=== PATIENT | female | born 1995 | race Caucasian/White ===

== ENCOUNTER 2016-05-30 16:53 | Emergency (ER) | payer MEDICAID ==
[~2016-05-30] VITALS: Ht 160 cm; Wt 100.0 kg
[~2016-05-30 16:53] MED LIST: CETI10CA PO; GUAI120S26 PO; IBUP-1542 PO; OSLT75C PO; ZOF8 PO
[2016-05-30 17:11] VITALS: Ht 160 cm; Wt 100.0 kg
[2016-05-30] MEDS ORDERED: AMO500 PO (17:31)
[2016-05-30] MEDS ORDERED: IBUP800T25 PO (17:32)
--- NOTE | 2016-05-30 17:43 | ERD ---
ER Documentation Chief Complaint Date/Time DATE: 05/30/16 TIME: 17:[address] X 4 DAYS HPI 20-year-old female with no significant past medical history presents to the ED complaining of sore throat that started 4 days ago. Reports tactile fevers at home. States that her throat feels slightly swollen. States that she still able to swallow without difficulty. States that she bought a OTC spray for her throat which has provided no relief. Denies any chest pain, shortness of breath , abdominal pain, wheezing, nausea, vomiting, diarrhea, cough, neck pain, neck stiffness. Denies any sick contacts. ROS All systems reviewed and are negative except as per history of present illness. Medications Home Meds Active Scripts Ibuprofen* (Motrin*) 800 Mg Tab, 800 MG PO Q6, #30 TAB Prov:DANIELLA WIN PA-C 05/30/16 Amoxicillin* (Amoxicillin*) 500 Mg Cap, 500 MG PO TID for 10 Days, CAP Prov:DANIELLA WIN PA-C 05/30/16 Ibuprofen* (Motrin*) 600 Mg Tab, 600 MG PO Q6H Y for PAIN AND OR ELEVATED TEMP, #30 TAB Prov:GREER FRASER NP 06/03/15 Oseltamivir Phosphate* (Tamiflu*) 75 Mg Capsule, 75 MG PO BID for 5 Days, CAP Prov:GREER FRASER NP 06/03/15 Cetirizine Hcl* (Zyrtec*) 10 Mg Capsule, 10 MG PO DAILY, #30 TAB.CHEW Prov:GREER FRASER NP 06/03/15 Ckdpbniqwpv-Z-Rzmvbqkwiw Hb* (Guaifenesin* DM Syrup) 120 Ml Syrup, 10 ML PO Q4H Y for COUGH, #120 ML Prov:GREER FRASER NP 06/03/15 Ibuprofen* (Motrin*) 600 Mg Tab, 600 MG PO Q6, #16 TAB Prov:CHANELLE CAMPBELL MD 05/31/15 Ondansetron Hcl* (Zofran* ODT) 8 mg -ODT Tab.disper, 8 MG PO Q6 Y for NAUSEA AND /OR VOMITING, #8 TAB Prov:CHANELLE CAMPBELL MD 05/31/15 Allergies Allergies: Coded Allergies: No Known Allergy (Unverified , 01/29/14) PMhx/Soc History of Surgery: Yes (left ankle surgery) Anesthesia Reaction: No Hx Neurological Disorder: No Hx Respiratory Disorders: No Hx Cardiac Disorders: No Hx Psychiatric Problems: No Hx Miscellaneous Medical Probl: No Hx Alcohol Use: No Hx Substance Use: No Hx Tobacco Use: No Physical Exam Vitals Vital Signs Date Time Temp Pulse Resp B/P Pulse Ox O2 Delivery O2 Flow Rate FiO2 05/30/16 18:13 98.6 77 18 128/68 98 Room Air 05/30/16 17:11 99.7 91 20 140/87 100 Physical Exam Const: Axn-oth-pejnunrop, well-nourished. In no acute distress. Head: Atraumatic, normocephalic Eyes: Normal Conjunctiva without injection. No purulent discharge. PERRL. EOMI ENT: Normal external ear. Ear canal without erythema. Tympanic membrane pearly penn without effusion or bulging. Nasal canal clear with normal turbinates. Moist oropharynx with bilateral tonsillar exudates. Slightly erythematous and edematous bilateral pharynx. Non-kissing tonsils noted. Uvula midline. No drooling. No trismus. Neck: Full range of motion. No meningismus. No cervical lymphadenopathy. Resp: Clear to auscultation bilaterally. No wheezing, rhonchi, rales, or crackles. No accessory muscle use. No retractions. Cardio: Regular rate and rhythm. No murmurs, rubs or gallops. Abd: Soft, non tender, non distended. Normal bowel sounds. No palpable masses. No rebound tenderness. No guarding. Skin: No petechiae or rashes Back: No midline tenderness. No CVA tenderness. Ext: No cyanosis, or edema. Neur: Awake and alert. Psych: Normal Mood and Affect Results 24 hrs Current Medications Medications (Trade) Dose Ordered Sig/Scarlett Route PRN Reason Start Time Stop Time Status Last Admin Dose Admin Dexamethasone (Decadron) 10 mg ONCE ONCE IM 05/30/16 18:00 05/30/16 18:01 DC 05/30/16 17:47 Ibuprofen (Motrin) 800 mg ONCE ONCE PO 05/30/16 18:00 05/30/16 18:01 DC 05/30/16 17:47 Amoxicillin (Amoxicillin) 500 mg ONCE ONCE PO 05/30/16 18:00 05/30/16 18:01 DC 05/30/16 17:54 Procedures/MDM This is a 20-year-old female with no significant past medical history presents to the ED complaining of sore throat that started 4 days ago. Patient is afebrile and nontoxic-appearing. Patient has normal vital signs. Patient's physical exam is consistent with presumed strep pharyngitis. She was treated here in the ED with Decadron 10 mg IM, Ibuprofen, Amoxicillin with improvement of her symptoms. Based on [employer] Criteria, patient has reported fever at home , exudates noted on bilateral edematous tonsils, no cough. Patient is appropriate for outpatient antibiotics. Patient's physical exam include lungs which were clear to auscultation and a normal pulse oximetry. Bilateral ears pearly rushing. No tenderness to palpation of tragus or mastoid. Low suspicion for mastoiditis, otitis externa, otitis media. Patient is speaking in full sentences. There is a low suspicion for pneumonia, epiglottitis, croup, sinusitis, peritonsillar abscess, hands foot mouth disease, scarlet fever, Viraj's angina, retropharyngeal abscess, meningitis, sepsis, acute abdomen or other emergent conditions. Discharge medications: Ibuprofen, Amoxicillin Follow up with primary care physician in 1-2 days. Instructed patient to return to the ED sooner for any worsening symptoms. Patient's questions were answered. Patient understood and agreed with discharge plan. Patient discharged stable. Departure Diagnosis: Primary Impression: Sore throat Condition: Stable Patient Instructions: Self-Care for Sore Throats, Pharyngitis, Strep (Presumed) Referrals: NO PRIMARY,CARE PHYSICIAN (PCP) COMM[facility]ITY CLINICS YOU HAVE RECEIVED A MEDICAL SCREENING EXAM AND THE RESULTS INDICATE THAT YOU DO NOT HAVE A CONDITION THAT REQUIRES URGENT TREATMENT IN THE EMERGENCY DEPARTMENT. FURTHER EVALUATION AND TREATMENT OF YOUR CONDITION CAN WAIT UNTIL YOU ARE SEEN IN YOUR DOCTORS OFFICE WITHIN THE NEXT 1-2 DAYS. IT IS YOUR RESPONSIBILITY TO MAKE AN APPOINTMENT FOR FOLOW-UP CARE. IF YOU HAVE A PRIMARY DOCTOR --you should call your primary doctor and schedule an appointment IF YOU DO NOT HAVE A PRIMARY DOCTOR YOU CAN CALL OUR PHYSICIAN REFERRAL HOTLINE AT IF YOU CAN NOT AFFORD TO SEE A PHYSICIAN YOU CAN CHOSE FROM THE FOLLOWING [facility] CLINICS [facility] [address] [facility] [address] [facility] [facility] [address] [facility] [address] [facility] [address] [facility] [address] [facility]. [facility] YOU HAVE RECEIVED A MEDICAL SCREENING EXAM AND THE RESULTS INDICATE THAT YOU DO NOT HAVE A CONDITION THAT REQUIRES URGENT TREATMENT IN THE EMERGENCY DEPARTMENT. FURTHER EVALUATION AND TREATMENT OF YOUR CONDITION CAN WAIT UNTIL YOU ARE SEEN IN YOUR DOCTORS OFFICE WITHIN THE NEXT 1-2 DAYS. IT IS YOUR RESPONSIBILITY TO MAKE AN APPOINTMENT FOR FOLOW-UP CARE. IF YOU HAVE A PRIMARY DOCTOR --you should call your primary doctor and schedule and appointment IF YOU DO NOT HAVE A PRIMARY DOCTOR YOU CAN CALL OUR PHYSICIAN REFERRAL HOTLINE AT . IF YOU CAN NOT AFFORD TO SEE A PHYSICIAN YOU CAN CHOSE FROM THE FOLLOWING [facility] INSTITUTIONS: [facility] [address] [place] [address] [facility] [address] [place] [address] [facility] [address] [place] [address] [facility] URGENT CARE/SPECIALTIES Additional Instructions: FOLLOW UP WITH YOUR PRIMARY CARE PHYSICIAN TOMORROW.Return to this facility if you are not improving as expected. DANIELLA WIN PA-C May 30, 2016 17:43
[2016-05-30] MEDS ORDERED: AMOXICILLIN 500 MG CAP PO ONE (18:00)
[2016-05-30] MEDS ORDERED: IBUPROFEN 800 MG TAB PO ONE (18:00)
[2016-05-30] MEDS ORDERED: DEXAMETHASONE 10 MG/ML 1 ML INJ IM ONE (18:00)
[2016-05-30 18:13] VITALS: BP 128/68; PULSE 77; RESP 18; TEMP 98.6
== END 2016-05-30 18:14 | disposition home or self-care (01) ==
LOC: FTE 16:53
DX: J02.9 Acute pharyngitis, unspecified (principal)
CPT/HCPCS: 96372; J1100; Z7502; Z7610

== ENCOUNTER 2016-07-06 18:59 | Emergency (ER) | payer MEDICAID ==
[~2016-07-06] VITALS: Ht 157.5 cm; Wt 101.5 kg
[~2016-07-06 18:59] MED LIST changes: +AMO500 PO; +IBUP800T25 PO
[2016-07-06 19:19] VITALS: Ht 157.5 cm; Wt 101.5 kg
--- NOTE | 2016-07-06 19:24 | ERD ---
ER Documentation Chief Complaint Date/Time DATE: 07/06/16 Chief Complaint Right eye redness HPI The patient is a 20-year-old female who presents the Emergency Department with complaint of right eye redness and discharge for the past 2 days. The patient reports that her son was recently experiencing similar symptoms, and was diagnosed with acute bacterial conjunctivitis. Upon waking up two days ago, the patient noted matting and crusting of the lashes of her right eye. Since, she has developed erythema and purulent drainage. She notes that she has been washing her eye multiple times a day, but the discharge continues to return. She denies any foreign body sensation to the eye. Denies use of contacts or glasses. Denies any pain with eye movement. Denies proptosis. Denies any trauma to the eye. Denies any visual changes, diplopia, blurred vision or vision loss. Denies fevers, chills, nausea, vomiting. Denies rhinorrhea, nasal condition, sore throat, neck pain, neck stiffness, ear pain or new rashes. ROS All systems reviewed and are negative except as per history of present illness. Medications Home Meds Active Scripts Polymyxin/Trimethoprim* (Polytrim* Eye Drops) 10 Ml Drops, 1 DROP RIGHT EYE QID for 7 Days, EA Prov:ANTONIETTA KRAMER PA-C 07/06/16 Ibuprofen* (Motrin*) 800 Mg Tab, 800 MG PO Q6, #30 TAB Prov:DANIELLA WIN PA-C 05/30/16 Amoxicillin* (Amoxicillin*) 500 Mg Cap, 500 MG PO TID for 10 Days, CAP Prov:DANIELLA WIN PA-C 05/30/16 Ibuprofen* (Motrin*) 600 Mg Tab, 600 MG PO Q6H Y for PAIN AND OR ELEVATED TEMP, #30 TAB Prov:GREER FRASER NP 06/03/15 Oseltamivir Phosphate* (Tamiflu*) 75 Mg Capsule, 75 MG PO BID for 5 Days, CAP Prov:GREER FRASER NP 06/03/15 Cetirizine Hcl* (Zyrtec*) 10 Mg Capsule, 10 MG PO DAILY, #30 TAB.CHEW Prov:GREER FRASER NP 06/03/15 Gzmtwzwtdox-M-Adjskjveim Hb* (Guaifenesin* DM Syrup) 120 Ml Syrup, 10 ML PO Q4H Y for COUGH, #120 ML Prov:GREER FRASER NP 06/03/15 Ibuprofen* (Motrin*) 600 Mg Tab, 600 MG PO Q6, #16 TAB Prov:CHANELLE CAMPBELL MD 05/31/15 Ondansetron Hcl* (Zofran* ODT) 8 mg -ODT Tab.disper, 8 MG PO Q6 Y for NAUSEA AND /OR VOMITING, #8 TAB Prov:CHANELLE CAMPBELL MD 05/31/15 Allergies Allergies: Coded Allergies: No Known Allergy (Unverified , 01/29/14) PMhx/Soc History of Surgery: Yes (left ankle surgery) Anesthesia Reaction: No Hx Neurological Disorder: No Hx Respiratory Disorders: No Hx Cardiac Disorders: No Hx Psychiatric Problems: No Hx Miscellaneous Medical Probl: No Hx Alcohol Use: No Hx Substance Use: No Hx Tobacco Use: No Physical Exam Vitals Vital Signs Date Time Temp Pulse Resp B/P Pulse Ox O2 Delivery O2 Flow Rate FiO2 07/06/16 19:19 98.5 92 20 149/65 99 Physical Exam GENERAL: Well-developed, well-nourished, female, in no acute distress HEENT: Head is normocephalic, atraumatic. Pupils equal, round and reactive to light. Extraocular movements intact. No pain with eye movement. No proptosis. Right eye with conjunctival erythema and injection. Discharge noted in the eyelid margins near the medial canthus of the right eye. Left eye is clear with no erythema, injection or discharge. No periorbital swelling or erythema. Nares are patent bilaterally. Bilaterally tympanic membranes are clear with no evidence of erythema, effusion or dulling of the light reflex. Moist mucous membranes. No tonsillar exudates or erythema of the oropharynx. NECK: Supple. No masses, no tenderness, no lymphadenopathy. Trachea midline. No nuchal rigidity. No meningismus. RESPIRATORY: Lungs are clear to auscultation bilaterally. Equal breath sounds. Normal expiratory effort. CARDIOVASCULAR: Regular rate and rhythm. EXTREMITIES: No clubbing, cyanosis, or edema. Normal skin perfusion. Moving all extremities. NEUROLOGIC: The patient is alert, awake, and oriented. INTEGUMENT: Skin is intact. Warm and dry. No rashes, no petechiae present. PSYCHIATRIC: Cooperative. Procedures/MDM This is a 20-year-old male presenting to the Emergency Department with complaint of right eye redness and discharge for the past two days. The patient' s son was recently diagnosed with bacterial conjunctivitis after experiencing similar symptoms. On physical examination, the patient had conjunctival erythema and injection of the right eye, with discharge noted in the eyelid margins near the medial canthus. Otherwise, she had no pain with eye movement, no proptosis, no scleral icterus. No periorbital edema or erythema were noted. No foreign bodies seen on eyelid eversion. The differential diagnosis includes, but is not limited to, viral infection, viral conjunctivitis, bacterial conjunctivitis, allergic conjunctivitis, reactive arthritis, keratoconjunctivitis sicca, chemical irritant, uveitis, glaucoma, foreign body, corneal abrasion/ulceration, keratitis, scleritis, episcleritis, dacryocystitis , trauma, subconjunctival hemorrhage, hordeolum, chalazion, blepharitis. There is no current evidence of intra-ocular trauma. No clinical findings of periorbital/orbital cellulitis. After rest, the patient reports no new complaints. Upon my review and interpretation of the patient's presentation, I believe the patient's symptoms are most consistent with acute conjunctivitis, likely bacterial in origin, given unilateral presentation, with crusting, matting and discharge. At this time, the patient is in stable condition and therefore can be discharged home with a prescription for Polytrim drops, and given strict return precautions for signs of deteriorating or worsening condition. The patient is instructed to follow up with her primary medical provider within 2-3 days for reevaluation and further management or return to the ER sooner for any persistent, new or worsening symptoms. I shared my medical decision making and plan with the patient, and they verbally understand and agree with the plan for further observation and care as an outpatient. At the time of discharge all questions were answered. Departure Diagnosis: Primary Impression: Acute conjunctivitis Acute conjunctivitis type: bacterial Laterality: right Qualified Code: H10.31 - Acute bacterial conjunctivitis of right eye Condition: Stable Patient Instructions: Conjunctivitis, Bacterial, What Is Conjunctivitis? Additional Instructions: Call your primary care doctor TOMORROW for an appointment during the next 2-3 days.See the doctor sooner or return here if your condition worsens before your appointment time. ANTONIETTA KRAMER PA-C Jul 06, 2016 19:24
[2016-07-06] MEDS ORDERED: POLY10DR RIGHT EYE (19:25)
== END 2016-07-06 19:22 | disposition home or self-care (01) ==
LOC: FTE 18:59 → E/R 19:22
DX: H10.31 Unspecified acute conjunctivitis, right eye (principal)
CPT/HCPCS: 99283

== ENCOUNTER 2016-09-12 09:09 | Emergency (ER) | payer MEDICAID ==
[~2016-09-12] VITALS: Ht 165.1 cm; Wt 90.0 kg
[~2016-09-12 09:09] MED LIST changes: +POLY10DR RIGHT EYE
[2016-09-12 09:13] VITALS: Ht 165.1 cm; Wt 90.0 kg
[2016-09-12] MEDS ORDERED: POLY10DR19 RIGHT EYE (10:27)
--- NOTE | 2016-09-12 10:32 | ERD ---
ER Documentation Chief Complaint Date/Time DATE: 09/12/16 TIME: 10:30 Chief Complaint right eye lid swelling HPI Is a 21-year-old female presents to the emergency department today complaining of right eyelid swelling that started 3 days ago. Patient states it was " really bad this morning". Denies any fevers or chills. ROS All systems reviewed and are negative except as per history of present illness. Medications Home Meds Active Scripts Polymyxin B Sulfate-TMP* (Polymyxin B-TMP Eye Drops*) 10 Ml Drops, 1 DROP RIGHT EYE QID for 7 Days, EA Prov:CHRISTI DOOLEYC 09/12/16 Polymyxin/Trimethoprim* (Polytrim* Eye Drops) 10 Ml Drops, 1 DROP RIGHT EYE QID for 7 Days, EA Prov:ANTONIETTA KARMER PA-C 07/06/16 Ibuprofen* (Motrin*) 800 Mg Tab, 800 MG PO Q6, #30 TAB Prov:DANIELLA WIN PA-C 05/30/16 Amoxicillin* (Amoxicillin*) 500 Mg Cap, 500 MG PO TID for 10 Days, CAP Prov:DANIELLA WIN PA-C 05/30/16 Ibuprofen* (Motrin*) 600 Mg Tab, 600 MG PO Q6H Y for PAIN AND OR ELEVATED TEMP, #30 TAB Prov:GREER FRASER NP 06/03/15 Oseltamivir Phosphate* (Tamiflu*) 75 Mg Capsule, 75 MG PO BID for 5 Days, CAP Prov:GREER FRASER NP 06/03/15 Cetirizine Hcl* (Zyrtec*) 10 Mg Capsule, 10 MG PO DAILY, #30 TAB.CHEW Prov:GREER FRASER NP 06/03/15 Cdztakzhwrw-H-Anaikkbrmb Hb* (Guaifenesin* DM Syrup) 120 Ml Syrup, 10 ML PO Q4H Y for COUGH, #120 ML Prov:GREER FRASER NP 06/03/15 Ibuprofen* (Motrin*) 600 Mg Tab, 600 MG PO Q6, #16 TAB Prov:CHANELLE CAMPBELL MD 05/31/15 Ondansetron Hcl* (Zofran* ODT) 8 mg -ODT Tab.disper, 8 MG PO Q6 Y for NAUSEA AND /OR VOMITING, #8 TAB Prov:CHANELLE CAMPBELL MD 05/31/15 Allergies Allergies: Coded Allergies: No Known Allergy (Unverified , 01/29/14) PMhx/Soc History of Surgery: Yes (left ankle surgery) Anesthesia Reaction: No Hx Neurological Disorder: No Hx Respiratory Disorders: No Hx Cardiac Disorders: No Hx Psychiatric Problems: No Hx Miscellaneous Medical Probl: No Hx Alcohol Use: No Hx Substance Use: No Hx Tobacco Use: No Physical Exam Vitals Vital Signs Date Time Temp Pulse Resp B/P Pulse Ox O2 Delivery O2 Flow Rate FiO2 09/12/16 09:13 98.1 67 20 121/67 99 Physical Exam Const: No acute distress Head: Atraumatic Eyes: Normal Conjunctiva bilaterally. No erythema. No purulent drainage. PERRLA. EOM intact. No pain with eye movement ENT: Normal External Ears, Nose and Mouth. Neck: Full range of motion..~ No meningismus. Resp: Clear to auscultation bilaterally Cardio: Regular rate and rhythm, no murmurs Skin: No petechiae or rashes Neur: Awake and alert Psych: Normal Mood and Affect Procedures/MDM This is 21-year-old female who presents the emergency department today for right eyelid swelling for the past 3 days. Patient states it was "really bad this morning". Patient's physical exam is benign. There is no conjunctival erythema or eyelid swelling. There is no evidence of chalazion or hordeolum. Low suspicion for orbital cellulitis, preseptal cellulitis. Patient has no pain with eye movement. Patient symptoms at this time possibly related to blepharitis. She was given Polytrim and instructed to apply warm compresses. She is afebrile and otherwise well-appearing. At this time the patient is stable for discharge and outpatient management. Patient should follow up with their PCP in the next 1-2 days. They may return to the emergency department sooner for any persistent or worsening of symptoms. Patient understood and agreed with the plan. Departure Diagnosis: Primary Impression: Eye problem Condition: Fair Referrals: COMMUNITY CLINICS YOU HAVE RECEIVED A MEDICAL SCREENING EXAM AND THE RESULTS INDICATE THAT YOU DO NOT HAVE A CONDITION THAT REQUIRES URGENT TREATMENT IN THE EMERGENCY DEPARTMENT. FURTHER EVALUATION AND TREATMENT OF YOUR CONDITION CAN WAIT UNTIL YOU ARE SEEN IN YOUR DOCTORS OFFICE WITHIN THE NEXT 1-2 DAYS. IT IS YOUR RESPONSIBILITY TO MAKE AN APPOINTMENT FOR FOLOW-UP CARE. IF YOU HAVE A PRIMARY DOCTOR --you should call your primary doctor and schedule an appointment IF YOU DO NOT HAVE A PRIMARY DOCTOR YOU CAN CALL OUR PHYSICIAN REFERRAL HOTLINE AT IF YOU CAN NOT AFFORD TO SEE A PHYSICIAN YOU CAN CHOSE FROM THE FOLLOWING [facility] [address] [facility] [address] [place] [employer] [facility] [address] [facility] [address] [facility] [address] [facility]. [facility]. [address] Additional Instructions: Call your primary care doctor TOMORROW for an appointment during the next 1-2 days.See the doctor sooner or return here if your condition worsens before your appointment time. Use antibiotic drops as prescribed Apply warm compresses CHRISTI DOOLEY PA-C September 12, 2016 10:32
== END 2016-09-12 11:09 | disposition home or self-care (01) ==
LOC: FTE 09:09
DX: H57.8 Other specified disorders of eye and adnexa (principal)
CPT/HCPCS: 99283

== ENCOUNTER 2016-10-24 21:17 | Emergency (ER) | END 2016-10-24 23:04 | disposition home or self-care (01) | DX: H00.015 Hordeolum externum left lower eyelid (principal) ==

== ENCOUNTER 2016-10-29 19:52 | Emergency (ER) | payer MEDICAID ==
[~2016-10-29] VITALS: Ht 170.2 cm; Wt 103.0 kg
[~2016-10-29 19:52] MED LIST changes: +POLY10DR19 RIGHT EYE; +SULF15DR19 BOTH EYES
[2016-10-29 19:57] VITALS: Ht 170.2 cm; Wt 103.0 kg
[2016-10-29] MEDS ORDERED: IBUP800T25 PO (20:51)
[2016-10-29] MEDS ORDERED: PEN500 PO (20:51)
--- NOTE | 2016-10-30 00:06 | ERD ---
ER Documentation Chief Complaint Date/Time DATE: 10/30/16 TIME: 00:03 Chief Complaint l DENTAL PAIN SINCE SUNDAY HPI 21-year-old female patient with no significant past medical history presents the ED complaining of left mandibular molar dental pain that started 3 days ago. Reports that she has not seen a dentist. States that she has been taking naproxen with relief of her pain. Denies any fever, chills, neck swelling, dysphagia, odynophagia, nausea, vomiting. ROS All systems reviewed and are negative except as per history of present illness. Medications Home Meds Active Scripts Penicillin V Potassium* (Penicillin V K*) 500 Mg Tab, 500 MG PO QID for 7 Days, TAB Prov:DANIELLA WIN PA-C 10/29/16 Ibuprofen* (Motrin*) 800 Mg Tab, 800 MG PO Q6, #30 TAB Prov:DANIELLA WIN PA-C 10/29/16 Sulfacetamide Sodium* (Bleph-10*) 10%-15 Ml Opht Drops, 1 DROP BOTH EYES Q2H for 7 Days, #1 EA Prov:KHRIS ALARCON 10/24/16 Polymyxin B Sulfate-TMP* (Polymyxin B-TMP Eye Drops*) 10 Ml Drops, 1 DROP RIGHT EYE QID for 7 Days, EA Prov:CHRISTI DOOLEYC 09/12/16 Polymyxin/Trimethoprim* (Polytrim* Eye Drops) 10 Ml Drops, 1 DROP RIGHT EYE QID for 7 Days, EA Prov:ANTONIETTA KRAMERC 07/06/16 Ibuprofen* (Motrin*) 800 Mg Tab, 800 MG PO Q6, #30 TAB Prov:DANIELLA WIN PA-C 05/30/16 Amoxicillin* (Amoxicillin*) 500 Mg Cap, 500 MG PO TID for 10 Days, CAP Prov:DANIELLA WINC 05/30/16 Ibuprofen* (Motrin*) 600 Mg Tab, 600 MG PO Q6H Y for PAIN AND OR ELEVATED TEMP, #30 TAB Prov:GREER FRASER NP 06/03/15 Oseltamivir Phosphate* (Tamiflu*) 75 Mg Capsule, 75 MG PO BID for 5 Days, CAP Prov:GREER FRASER NP 06/03/15 Cetirizine Hcl* (Zyrtec*) 10 Mg Capsule, 10 MG PO DAILY, #30 TAB.CHEW Prov:GREER FRASER NP 06/03/15 Kzfzlxmdumc-A-Nyctynsjks Hb* (Guaifenesin* DM Syrup) 120 Ml Syrup, 10 ML PO Q4H Y for COUGH, #120 ML Prov:GREER FRASER NP 06/03/15 Ibuprofen* (Motrin*) 600 Mg Tab, 600 MG PO Q6, #16 TAB Prov:CHANELLE CAMPBELL MD 05/31/15 Ondansetron Hcl* (Zofran* ODT) 8 mg -ODT Tab.disper, 8 MG PO Q6 Y for NAUSEA AND /OR VOMITING, #8 TAB Prov:CHANELLE CAMPBELL MD 05/31/15 Allergies Allergies: Coded Allergies: No Known Allergy (Unverified , 01/29/14) PMhx/Soc History of Surgery: Yes (left ankle surgery) Anesthesia Reaction: No Hx Neurological Disorder: No Hx Respiratory Disorders: No Hx Cardiac Disorders: No Hx Psychiatric Problems: No Hx Miscellaneous Medical Probl: No Hx Alcohol Use: No Hx Substance Use: No Hx Tobacco Use: No Smoking Status: Never smoker Physical Exam Vitals Vital Signs Date Time Temp Pulse Resp B/P Pulse Ox O2 Delivery O2 Flow Rate FiO2 10/29/16 19:57 99.6 77 16 124/85 100 Physical Exam Const: Pan-rdt-zesrcfxej, well-nourished. In no acute distress. Head: Atraumatic, normocephalic Eyes: Normal Conjunctiva without injection. No purulent discharge. PERRL. EOMI ENT: Normal external ear. Ear canal without erythema. Tympanic membrane pearly penn without effusion or bulging. Nasal canal clear with normal turbinates. Moist oropharynx without tonsillar exudates. Non-erythematous pharynx. Uvula midline. No drooling. No trismus. No angioedema. Tenderness to palpation of the left third lower molar #17. No lymphatic streaking. No abscess noted. No fluctuance or induration. Neck: Full range of motion. No meningismus. No cervical lymphadenopathy. Resp: Clear to auscultation bilaterally. No wheezing, rhonchi, rales, or crackles. No accessory muscle use. No retractions. Cardio: Regular rate and rhythm. No murmurs, rubs or gallops. Abd: Soft, non tender, non distended. Normal bowel sounds. No palpable masses. No rebound tenderness. No guarding. Skin: No petechiae or rashes Back: No midline tenderness. No CVA tenderness. Ext: No cyanosis, or edema. Neur: Awake and alert. Psych: Normal Mood and Affect Procedures/MDM This is a 21-year-old female patient with no significant past history presents to the ED complaining of left lower molar pain #17. Patient is afebrile and nontoxic-appearing. Patient has normal vital signs. Patient is appropriate for outpatient antibiotics. Patient will be given a prescription for Penicillin VK and Ibuprofen. Patient is speaking in full sentences. She was strictly instructed to follow-up with dentist for further evaluation and treatment. Low suspicion for Viraj's angina, strep pharyngitis, mastoiditis, otitis externa, otitis media. There is a low suspicion for pneumonia, epiglottitis, croup, sinusitis, peritonsillar abscess, hands foot mouth disease , retropharyngeal abscess, meningitis, sepsis, acute abdomen or other emergent conditions. Discharge medications: Ibuprofen, Penicillin VK Follow up with primary care physician in 1-2 days. Instructed patient to return to the ED sooner for any worsening symptoms. Patient's questions were answered. Patient understood and agreed with discharge plan. Patient discharged stable. Departure Diagnosis: Primary Impression: Toothache Condition: Stable Patient Instructions: Dental Pain Referrals: [facility] YOU HAVE RECEIVED A MEDICAL SCREENING EXAM AND THE RESULTS INDICATE THAT YOU DO NOT HAVE A CONDITION THAT REQUIRES URGENT TREATMENT IN THE EMERGENCY DEPARTMENT. FURTHER EVALUATION AND TREATMENT OF YOUR CONDITION CAN WAIT UNTIL YOU ARE SEEN IN YOUR DOCTORS OFFICE WITHIN THE NEXT 1-2 DAYS. IT IS YOUR RESPONSIBILITY TO MAKE AN APPOINTMENT FOR FOLOW-UP CARE. IF YOU HAVE A PRIMARY DOCTOR --you should call your primary doctor and schedule an appointment IF YOU DO NOT HAVE A PRIMARY DOCTOR YOU CAN CALL OUR PHYSICIAN REFERRAL HOTLINE AT IF YOU CAN NOT AFFORD TO SEE A PHYSICIAN YOU CAN CHOSE FROM THE FOLLOWING [facility] [address] [facility]. [facility] [address] [facility] [facility] [address] [facility] [address] [facility] [address] [facility]. [facility] [address] [facility]. [facility] YOU HAVE RECEIVED A MEDICAL SCREENING EXAM AND THE RESULTS INDICATE THAT YOU DO NOT HAVE A CONDITION THAT REQUIRES URGENT TREATMENT IN THE EMERGENCY DEPARTMENT. FURTHER EVALUATION AND TREATMENT OF YOUR CONDITION CAN WAIT UNTIL YOU ARE SEEN IN YOUR DOCTORS OFFICE WITHIN THE NEXT 1-2 DAYS. IT IS YOUR RESPONSIBILITY TO MAKE AN APPOINTMENT FOR FOLOW-UP CARE. IF YOU HAVE A PRIMARY DOCTOR --you should call your primary doctor and schedule and appointment IF YOU DO NOT HAVE A PRIMARY DOCTOR YOU CAN CALL OUR PHYSICIAN REFERRAL HOTLINE AT . IF YOU CAN NOT AFFORD TO SEE A PHYSICIAN YOU CAN CHOSE FROM THE FOLLOWING [facility] INSTITUTIONS: [facility] [address] [place] [address] [facility] [address] [place] [address] [facility] [address] [place] [address] [facility] DENTIST ([facility] walk in clinic) Additional Instructions: FOLLOW UP WITH YOUR dentist TOMORROW. Return to this facility if you are not improving as expected. See the doctor sooner or return here if your condition worsens before your appointment time - fever, nausea, vomiting, worsening swelling and redness. DANIELLA WIN PA-C Oct 30, 2016 00:05 DANIELLA WIN PA-C Oct 30, 2016 00:05
== END 2016-10-29 21:16 | disposition home or self-care (01) ==
LOC: FTE 19:52
DX: K08.89 Other specified disorders of teeth and supporting structures (principal)
CPT/HCPCS: 99283

== ENCOUNTER 2018-07-24 19:41 | Emergency (ER) | payer MEDICAID ==
[~2018-07-24] VITALS: Ht 160 cm; Wt 102.1 kg
[~2018-07-24 19:41] MED LIST changes: -AMO500 PO; +AMOX500C2 PO; -IBUP800T25 PO; +IBUP800T48 PO; +OSEL75CA23 PO; -OSLT75C PO; +PENI500T PO
[2018-07-24 19:54] VITALS: Ht 160 cm; Wt 102.1 kg
[2018-07-24] MEDS ORDERED: KETOROLAC 60 MG INJ IM STA (22:44)
[2018-07-25] MEDS ORDERED: ACYC800T PO (01:12)
[2018-07-25] MEDS ORDERED: CEPH-443 PO (01:12)
[2018-07-25] MEDS ORDERED: LIDO40SO8 MM (01:12)
[2018-07-25] MEDS ORDERED: TRAM50TA2 PO (01:13)
[2018-07-25 01:28] VITALS: BP 121/92; PULSE 78; RESP 18
--- NOTE | 2018-07-25 01:31 | ERD ---
ER Documentation Chief Complaint Chief Complaint flank pain x 1 week, pain on urination as well HPI History of Present Illness: Patient coming in today with complaint of right flank pain is been present for 1 week. Patient reports noticing rash to right flank approximately 4-5 days ago, reports that started as itching and then became painful. Patient also reporting she has had painful urination with abdominal cramping. denies patient denies any systemic signs of infection, patient denies any other associated symptoms. At home pharmacological/nonpharmacological treatment for symptoms: Denies Denies social concerns; Denies recent foreign travel ROS All systems reviewed and are negative except as per history of present illness. Medications Home Meds Active Scripts Tramadol HCl (Tramadol HCl) 50 Mg Tablet, 50 MG PO Q4 PRN for PAIN LEVEL 6-10, #10 TAB Prov:CORDELIA LUJAN V HOME PARAPROFESSIONAL 07/25/18 Lidocaine 4% Topical (Lidocaine HCl) 4%-50 Ml Soln, 1 APPLIC MM QID PRN for PAIN, #1 BOT Prov:CORDELIA LUJAN NP 07/25/18 Acyclovir* (Acyclovir*) 800 Mg Tablet, 800 MG PO 5 TIMES DAILY for shingles for 10 Days, TAB Prov:CORDELIA LUJAN V HOME PARAPROFESSIONAL 07/25/18 Cephalexin* (Keflex*) 500 Mg Capsule, 500 MG PO QID for urine infection for 7 Days, CAP Prov:CORDELIA LUJAN NP 07/25/18 Penicillin V Potassium* (Penicillin V K*) 500 Mg Tab, 500 MG PO QID for 7 Days, TAB Prov:DANIELLA WIN PA-C 10/29/16 Ibuprofen* (Motrin*) 800 Mg Tab, 800 MG PO Q6, #30 TAB Prov:DANIELLA WIN PA-C 10/29/16 Sulfacetamide Sodium* (Bleph-10*) 10%-15 Ml Opht Drops, 1 DROP BOTH EYES Q2H for 7 Days, #1 EA Prov:KHRIS ALARCON 10/24/16 Polymyxin B Sulfate-TMP* (Polymyxin B-TMP Eye Drops*) 10 Ml Drops, 1 DROP RIGHT EYE QID for 7 Days, EA Prov:CHRISTI DOOLEY PA-C 09/12/16 Polymyxin/Trimethoprim* (Polytrim* Eye Drops) 10 Ml Drops, 1 DROP RIGHT EYE QID for 7 Days, EA Prov:WILLIAMSANTONIETTA PA-C 07/06/16 Ibuprofen* (Motrin*) 800 Mg Tab, 800 MG PO Q6, #30 TAB Prov:DANIELLA WIN PA-C 05/30/16 Amoxicillin* (Amoxicillin*) 500 Mg Cap, 500 MG PO TID for 10 Days, CAP Prov:DANIELLA WIN PA-C 05/30/16 Ibuprofen* (Motrin*) 600 Mg Tab, 600 MG PO Q6H PRN for PAIN AND OR ELEVATED TEMP, #30 TAB Prov:GREER FRASER NP 06/03/15 Oseltamivir Phosphate* (Tamiflu*) 75 Mg Capsule, 75 MG PO BID for 5 Days, CAP Prov:GREER FRASER HOME PARAPROFESSIONAL 06/03/15 Cetirizine Hcl* (Zyrtec*) 10 Mg Capsule, 10 MG PO DAILY, #30 TAB.CHEW Prov:GREER FRASER NP 06/03/15 Najywnqqrfz-B-Mpmamzznfe Hb* (Guaifenesin* DM Syrup) 120 Ml Syrup, 10 ML PO Q4H PRN for COUGH, #120 ML Prov:GREER FRASER NP 06/03/15 Ibuprofen* (Motrin*) 600 Mg Tab, 600 MG PO Q6, #16 TAB Prov:CHANELLE CAMPBELL MD 05/31/15 Ondansetron Hcl* (Zofran* ODT) 8 mg -ODT Tab.disper, 8 MG PO Q6 PRN for NAUSEA AND/OR VOMITING, #8 TAB Prov:CHANELLE CAMPBELL MD 05/31/15 Allergies Allergies: Coded Allergies: No Known Allergy (Unverified , 01/29/14) PMhx/Soc Medical and Surgical Hx: pt denies Medical Hx, pt denies Surgical Hx History of Surgery: Yes (left ankle surgery) Anesthesia Reaction: No Hx Neurological Disorder: No Hx Respiratory Disorders: No Hx Cardiac Disorders: No Hx Psychiatric Problems: No Hx Miscellaneous Medical Probl: No Hx Alcohol Use: No Hx Substance Use: No Hx Tobacco Use: No Smoking Status: Never smoker FmHx Family History: diabetes; No coronary disease Physical Exam Vitals Vital Signs Date Temp Pulse Resp B/P (MAP) Pulse Ox O2 O2 Flow FiO2 Time Delivery Rate 07/24/18 97.6 80 20 127/70 98 19:54 (89) Physical Exam Const: No acute distress, afebrile Head: Atraumatic Eyes: Normal Conjunctiva ENT: Normal External Ears, Nose and Mouth. Neck: Full range of motion. No meningismus. Resp: Clear to auscultation bilaterally Cardio: Regular rate and rhythm, no murmurs Abd: Soft, suprapubic tenderness, non distended. No guarding, no masses, no rigidity Skin: No petechiae or rashes Back: No midline or flank tenderness; 4 cm rash noted to right flank, erythematous, vesicular, tender to palpation Ext: No cyanosis, or edema Neur: Awake and alert x3, speaking in clear sentences, no focal deficits or facial asymmetry Psych: Normal Mood and Affect Results 24 hrs Laboratory Tests Test 07/24/18 22:50 07/24/18 22:53 Urine Color YELLOW Urine Clarity SLIGHTLY CLOUDY Urine pH 5.0 Urine Specific [place] 1.028 Urine Ketones TRACE mg/dL Urine Nitrite POSITIVE mg/dL Urine Bilirubin NEGATIVE mg/dL Urine Urobilinogen NEGATIVE mg/dL Urine Leukocyte Esterase NEGATIVE Kan/ul Urine Microscopic RBC 6 /HPF Urine Microscopic WBC 6 /HPF Urine Squamous Epithelial Cells FEW /HPF Urine Bacteria MODERATE /HPF Urine Mucus MANY /HPF Urine Hemoglobin NEGATIVE mg/dL Urine Glucose NEGATIVE mg/dL Urine Total Protein NEGATIVE mg/dl POC Beta HCG, Qualitative NEGATIVE Current Medications Medications Dose Sig/Scarlett Start Time Status Last (Trade) Ordered Route PRN Stop Time Admin Dose Reason Admin Ketorolac 60 mg ONCE STAT 07/24/18 DC 07/24/18 Tromethamine IM 22:44 23:09 (Toradol) 07/24/18 22:47 Procedures/MDM ED course includes a thorough examination and history. Medications: Ketorolac for pain and inflammation Imaging: -- Labs: Urinalysis Low suspicion for life-threatening medical emergency. Low suspicion for medical emergency requires hospitalization or immediate intervention surgically. Otherwise healthy patient presenting with constellation of symptoms likely representing uncomplicated shingles, urinary tract infection as characterized by history, physical exam findings, lab findings. Urinalysis positive for nitrates, RBCs, WBCs, moderate bacteria. POC hCG negative. No respiratory distress, otherwise relatively well appearing and nontoxic. Patient educated on diagnoses, prescriptions, follow-up care, return precautions. Strict return precautions given for worsening condition; questions answered discharge. Disposition for discharge with followup in 2 days with PCP/clinic. Departure Diagnosis: Primary Impression: Shingles Herpes zoster complications: without complications Qualified Codes: B02.9 - Zoster without complications Additional Impression: UTI (urinary tract infection) Urinary tract infection type: site unspecified Hematuria presence: with hematuria Qualified Codes: N39.0 - Urinary tract infection, site not specified; R31.9 - Hematuria, unspecified Condition: Stable Patient Instructions: Understanding Urinary Tract Infections (UTIs), Shingles (Herpes Zoster) Referrals: [facility] YOU HAVE RECEIVED A MEDICAL SCREENING EXAM AND THE RESULTS INDICATE THAT YOU DO NOT HAVE A CONDITION THAT REQUIRES URGENT TREATMENT IN THE EMERGENCY DEPARTMENT. FURTHER EVALUATION AND TREATMENT OF YOUR CONDITION CAN WAIT UNTIL YOU ARE SEEN IN YOUR DOCTORS OFFICE WITHIN THE NEXT 1-2 DAYS. IT IS YOUR RESPONSIBILITY TO MAKE AN APPOINTMENT FOR FOLOW-UP CARE. IF YOU HAVE A PRIMARY DOCTOR --you should call your primary doctor and schedule an appointment IF YOU DO NOT HAVE A PRIMARY DOCTOR YOU CAN CALL OUR PHYSICIAN REFERRAL HOTLINE AT IF YOU CAN NOT AFFORD TO SEE A PHYSICIAN YOU CAN CHOSE FROM THE FOLLOWING [facility] [address] [facility]. [facility] [address] [facility] [address] [address] [facility] [address] [facility] [address] [facility] [facility]. [address] [facility] YOU HAVE RECEIVED A MEDICAL SCREENING EXAM AND THE RESULTS INDICATE THAT YOU DO NOT HAVE A CONDITION THAT REQUIRES URGENT TREATMENT IN THE EMERGENCY DEPARTMENT. FURTHER EVALUATION AND TREATMENT OF YOUR CONDITION CAN WAIT UNTIL YOU ARE SEEN IN YOUR DOCTORS OFFICE WITHIN THE NEXT 1-2 DAYS. IT IS YOUR RESPONSIBILITY TO MAKE AN APPOINTMENT FOR FOLOW-UP CARE. IF YOU HAVE A PRIMARY DOCTOR --you should call your primary doctor and schedule and appointment IF YOU DO NOT HAVE A PRIMARY DOCTOR YOU CAN CALL OUR PHYSICIAN REFERRAL HOTLINE AT . IF YOU CAN NOT AFFORD TO SEE A PHYSICIAN YOU CAN CHOSE FROM THE FOLLOWING [facility] INSTITUTIONS: [facility] [address] [place] [address] [facility] [address] [place] [address] [facility] [address] [place] [address] Additional Instructions: Thank you very much for allowing us to participate in your care. Your health and safety is our top priority at [facility]. It is important to read all discharge instructions and education provided in your discharge packet. Call your primary care doctor TOMORROW for an appointment during the next 2-4 d ays and bring all the information and medications prescribed. Have prescriptions filled and follow precisely the directions on the label. Acyclovir is a antiviral; this will help treat the shingles, It is important to take this medication as prescribed every day. Cephalexin as an antibiotic for urinary tract infection, you are to take this medication for entire 10 days. Tramadol for moderate to severe pain; do not operate heavy machinery while taking this medication. Lidocaine cream is for the skin you can read this over the rash to help with pain control. If the symptoms get worse and your provider is unavailable, return to the Emergency Department immediately. CORDELIA LUJAN NP Jul 25, 2018 01:31
== END 2018-07-25 01:29 | disposition home or self-care (01) ==
LOC: FTE 19:41
DX: N39.0 Urinary tract infection, site not specified (principal); B02.9 Zoster without complications
CPT/HCPCS: 81001; 81025; 96372; J1885; Z7502